=== PATIENT | female | born 1985 | race Caucasian/White ===

== ENCOUNTER 2020-07-19 08:49 | Emergency (ER) | payer OTHER, MEDICAID ==
[~2020-07-19] VITALS: Ht 175.3 cm; Wt 122.5 kg
[2020-07-19 09:01] VITALS: BP 143/99
[2020-07-19] MEDS ORDERED: KEFLEX500 M1 PO (09:24)
== END 2020-07-19 09:40 | disposition home or self-care (01) ==
LOC: M.ERS 08:49
DX: S50.362A Insect bite (nonvenomous) of left elbow, initial encounter (principal); S40.261A Insect bite (nonvenomous) of right shoulder, initial encounter; W57.XXXA Bitten or stung by nonvenomous insect and other nonvenomous arthropods, initial encounter; Y93.89 Activity, other specified; Y92.89 Other specified places as the place of occurrence of the external cause; Y99.8 Other external cause status